=== PATIENT | male | born 2000 | race Caucasian/White ===

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

== ENCOUNTER 2022-10-05 15:51 | Emergency (ER) | payer OTHER ==
[~2022-10-05] VITALS: Ht 170.2 cm; Wt 71.2 kg
[2022-10-05] MEDS ORDERED: VALACYCLOVIR1000 MG PO (16:55)
== END 2022-10-05 17:20 | disposition home or self-care (01) ==
LOC: ED 15:51
DX: L03.012 Cellulitis of left finger (principal)
CPT/HCPCS: 99282

== ENCOUNTER 2025-03-14 18:18 | Emergency (ER) | payer OTHER ==
[~2025-03-14] VITALS: Ht 170.2 cm; Wt 87.0 kg
[~2025-03-14 18:18] MED LIST changes: +VALACYCLOVIR1000 MG PO
[2025-03-14 19:05] VITALS: BP 139/93
== END 2025-03-14 19:05 | disposition home or self-care (01) ==
LOC: ED 18:18
DX: T23.201A Burn of second degree of right hand, unspecified site, initial encounter (principal); X08.8XXA Exposure to other specified smoke, fire and flames, initial encounter
CPT/HCPCS: 99283